=== PATIENT | male | born 1960 | race Caucasian/White ===

== ENCOUNTER → 2017-05-05 | Outpatient (CLI) | payer BC ==
[~2017-05-05] MED LIST: CIPRO 500MG TA500 MG PO; CYCLOBENZAPRINE10 MG PO; DEXAMETHASONE 4M4 MG PO; Oxycodone5 MG PO; PRILOSEC OTC20 MG PO; RANITIDINE HCL150 MG PO
== END ==
LOC: LAB 08:18
DX: R97.20 Elevated prostate specific antigen [PSA] (principal)